=== PATIENT | male | born 1985 | race African-American/Black ===

== ENCOUNTER 2016-06-28 16:47 | Emergency (ER) | payer MEDICARE, MEDICAID ==
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
[2016-06-28 20:25] LABS: APPEARANCE,URINE CLEAR; BILIRUBIN,URINE NEGATIVE (NEGATIVE); GLUCOSE, URINE NEGATIVE (NEGATIVE); KETONES,URINE NEGATIVE (NEGATIVE); LEUKOCYTE ESTERASE,URINE LARGE (NEGATIVE); NITRITE,URINE POSITIVE (NEGATIVE); PROTEIN,URINE NEGATIVE (NEGATIVE); URINE SPECIFIC GRAVITY 1.005
[2016-06-28] MEDS ORDERED: CEPHALEXIN 500 MG CAPSULE PO ONE (21:23)
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
[2016-06-28] MEDS ORDERED: HYDROCODONE/ACETAMINOPHEN 5-325 MG TABLET PO ONE (21:57)
[2016-06-28 22:06] VITALS: BP 114/64
== END 2016-06-28 22:06 | disposition home or self-care (01) ==
LOC: ER 16:47
DX: N39.0 Urinary tract infection, site not specified (principal); R31.9 Hematuria, unspecified; Z46.6 Encounter for fitting and adjustment of urinary device; Z88.2 Allergy status to sulfonamides
CPT/HCPCS: 99283; 87086; 87088; 81001; 87186; A9270 ×2

== ENCOUNTER 2016-07-20 18:01 | Emergency (ER) | payer MEDICARE, MEDICAID ==
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
[2016-07-20] MEDS ORDERED: IPRATROPIUM/ALBUTEROL 0.5-2.5 MG/3 ML AMPUL NEB ONE (19:36)
[2016-07-20] MEDS ORDERED: PREDNISONE 20 MG TABLET PO ONE (19:36)
[2016-07-20] MEDS ORDERED: NORMAL SALINE 1000 ML 1,000 ML IV ONE ×2 (20:45→21:58)
[2016-07-20] MEDS ORDERED: ONDANSETRON HCL INJ/PF 4 MG/2 ML SDV IV ONE (20:48)
[2016-07-20] MEDS ORDERED: PIPERACILLIN/TAZOBACTAM 3.375 GM VIAL IV ONE (20:53)
[2016-07-20] MEDS ORDERED: LIDOCAINE 2% URO-JET 5 ML KIT MM ONE (20:54)
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
[2016-07-20 21:37] LABS: APPEARANCE,URINE CLEAR; BILIRUBIN,URINE NEGATIVE (NEGATIVE); GLUCOSE, URINE NEGATIVE (NEGATIVE); KETONES,URINE TRACE mg/dL (NEGATIVE); LEUKOCYTE ESTERASE,URINE SMALL (NEGATIVE); NITRITE,URINE NEGATIVE (NEGATIVE); PROTEIN,URINE 30 mg/dL (NEGATIVE); URINE SPECIFIC GRAVITY 1.014
--- NOTE | 2016-07-20 21:51 | EKG REPORT ---
SEVERITY:- NORMAL ECG - SINUS RHYTHM : Confirmed by: Nyla Ramirez MD 20-Jul-2016 21:50:53
[2016-07-21 00:28] LABS: ABSOLUTE LYMPHOCYTES (AUTO) 1.7 10^3/uL (0.5-4.7); ABSOLUTE MONOCYTES (AUTO) 1.1 10^3/uL (0.1-1.4); ABSOLUTE NEUT (AUTO) 7.4 10^3/uL (1.7-8.2); BASOPHILS % (AUTO) 0.5 % (0-2); EOSINOPHILS % (AUTO) 0.4 % (0-6); HEMATOCRIT 44.1 % (37.9-51.0); HEMOGLOBIN 14.5 g/dL (13.5-17.0); HGB HCT DIFFERENCE -0.6; LYMPHOCYTES % (AUTO) 16.3 % (13-45); MEAN CORPUSCULAR HEMOGLOBIN 29.4 pg (27.0-33.4); MEAN CORPUSCULAR HGB CONC 32.9 g/dL (32.0-36.0); MEAN CORPUSCULAR VOLUME 89 fl (80-97); RED BLOOD COUNT 4.94 10^6/uL (4.35-5.55); RED CELL DISTRIBUTION WIDTH 14.3 % (11.5-14.0); SEGMENTED NEUTROPHILS % (AUTO) 71.8 % (42-78); WHITE BLOOD COUNT 10.3 10^3/uL (4.0-10.5)
[2016-07-21] MEDS ORDERED: PIPERACILLIN/TAZOBACTAM 3.375 GM VIAL IV ONE (00:28)
[2016-07-21 00:33] LABS: PROTHROMBIN TIME 13.3 SEC (11.4-15.4)
[2016-07-21 00:52] LABS: ALANINE AMINOTRANSFERASE 30 U/L (21-72); ALBUMIN 4.6 g/dL (3.5-5.0); ALKALINE PHOSPHATASE 72 U/L (38-126); ANION GAP 15 (5-19); ASPARTATE AMINO TRANSFERASE 43 U/L (17-59); BILIRUBIN,DIRECT 0.4 mg/dL (0.0-0.4); BILIRUBIN,TOTAL 0.8 mg/dL (0.2-1.3); BLOOD UREA NITROGEN 13 mg/dL (7-20); CALCIUM 9.8 mg/dL (8.4-10.2); CARBON DIOXIDE 30 mmol/L (22-30); CHLORIDE 102 mmol/L (98-107); CREATININE RESULT 0.65 mg/dL (0.52-1.25); GLUCOSE 101 mg/dL (75-110); SODIUM 146.9 mmol/L (137-145); TOTAL PROTEIN 8.1 g/dL (6.3-8.2)
[2016-07-21] MEDS ORDERED: CEPHALEXIN 500 MG CAPSULE PO ONE (01:45)
[2016-07-21 02:06] VITALS: BP 118/71
== END 2016-07-21 02:06 | disposition home or self-care (01) ==
LOC: ER 18:01
DX: R30.0 Dysuria (principal); R82.90 Unspecified abnormal findings in urine; R11.2 Nausea with vomiting, unspecified; R50.9 Fever, unspecified; R10.2 Pelvic and perineal pain; R09.02 Hypoxemia; R06.2 Wheezing; E78.00 Pure hypercholesterolemia, unspecified; Z88.2 Allergy status to sulfonamides; Z86.718 Personal history of other venous thrombosis and embolism; Z99.3 Dependence on wheelchair
CPT/HCPCS: 93005; 99284; 51701; 96365; 36415; 87040; 87086; 82962; 85025; 85610; 87077; 87088; 80053; 81001; 87186; 83605; 71010; 93010; A9270; J7030; J2543

== ENCOUNTER 2017-04-25 10:26 | Emergency (ER) | payer MEDICARE, MEDICAID ==
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
[2017-04-25] MEDS ORDERED: NITROFURANTOIN MONOHYD/M-CRYST 100 MG CAPSULE PO ONE (12:19)
[2017-04-25] MEDS ORDERED: DIPHENHYDRAMINE HCL 50 MG CAPSULE PO ONE (12:23)
[2017-04-25 12:53] VITALS: BP 109/46
== END 2017-04-25 12:53 | disposition home or self-care (01) ==
LOC: ER 10:26
DX: T36.8X5A Adverse effect of other systemic antibiotics, initial encounter (principal); R21 Rash and other nonspecific skin eruption; F17.200 Nicotine dependence, unspecified, uncomplicated
CPT/HCPCS: 99283; A9270 ×2; J8499

== ENCOUNTER 2017-07-26 13:28 | Emergency (ER) | payer MEDICARE, MEDICAID ==
[2017-07-26] MEDS ORDERED: KETOROLAC TROMETHAMINE 60 MG/2 ML SDV IM ONE (14:33)
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
[2017-07-26] MEDS ORDERED: BACLOFEN 20 MG TABLET PO ONE (15:15)
[2017-07-26 15:39] LABS: APPEARANCE,URINE SLIGHTLY-CLOUDY; BILIRUBIN,URINE NEGATIVE (NEGATIVE); COLOR,URINE YELLOW; GLUCOSE, URINE NEGATIVE (NEGATIVE); KETONES,URINE NEGATIVE (NEGATIVE); LEUKOCYTE ESTERASE,URINE LARGE (NEGATIVE); NITRITE,URINE POSITIVE (NEGATIVE); PROTEIN,URINE NEGATIVE (NEGATIVE); URINE SPECIFIC GRAVITY 1.008
[2017-07-26 16:03] VITALS: BP 105/74
== END 2017-07-26 16:03 | disposition home or self-care (01) ==
LOC: ER 13:28
DX: N30.00 Acute cystitis without hematuria (principal); E78.00 Pure hypercholesterolemia, unspecified; F17.210 Nicotine dependence, cigarettes, uncomplicated; Z86.718 Personal history of other venous thrombosis and embolism; Z88.2 Allergy status to sulfonamides
CPT/HCPCS: 99284; 96372; 87086; 87088; 81001; 87186; J1885; A9270; J3490

== ENCOUNTER 2017-12-24 12:04 | Emergency (ER) | payer MEDICARE, MEDICAID ==
[2017-12-24] MEDS ORDERED: RINGERS SOLUTION,LACTATED 1,000 ML IV ONE (12:22)
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
[2017-12-24] MEDS ORDERED: NORMAL SALINE 1000 ML 1,000 ML IV ONE ×2 (12:44→13:13)
[2017-12-24 13:08] LABS: APPEARANCE,URINE CLOUDY; BILIRUBIN,URINE NEGATIVE (NEGATIVE); COLOR,URINE AMBER; GLUCOSE, URINE NEGATIVE (NEGATIVE); KETONES,URINE NEGATIVE (NEGATIVE); LEUKOCYTE ESTERASE,URINE LARGE (NEGATIVE); NITRITE,URINE POSITIVE (NEGATIVE); PROTEIN,URINE 100 mg/dL (NEGATIVE); TRIPLE PHOSPHATE CRYSTAL,URINE MODERATE /HPF; URINE SPECIFIC GRAVITY 1.019
--- NOTE | 2017-12-24 13:11 | RADIOLOGY REPORT (SQ) ---
EXAM DESCRIPTION: CT LTD RENAL STONE PROTOCOL ON COMPLETED DATE/TIME: 12/24/2017 12:51 pm REASON FOR STUDY: r flank pain COMPARISON: CT pelvis examination dated 03/23/2016 TECHNIQUE: CT scan of the abdomen and pelvis performed without intravenous or oral contrast. Images reviewed with lung, soft tissue, and bone windows. Reconstructed coronal and sagittal MPR images revi ewed. All images stored on PACS. All CT scanners at this facility use dose modulation, iterative reconstruction, and/or weight based d osing when appropriate to reduce radiation dose to as low as reasonably achievable (ALARA). [facility]: Dose Right [facility]: CareDose [facility]: Dose Right [facility]: Teradose 4D [facility]: [employer] RADIATION DOSE: Total exam DLP: 614.94 mGy-cm. LIMITATIONS: None. FINDINGS: LOWER CHEST: No significant findings. No nodules or infiltrates. NON-CONTRASTED LIVER, SPLEEN, ADRENALS: Evaluation limited by lack of IV contrast. No identified sign ificant masses. PANCREAS: No masses. No peripancreatic inflammatory changes. GALLBLADDER: No identified stones by CT criteria. No inflammatory changes to suggest cholecystitis. RIGHT KIDNEY AND URETER: No suspicious masses. Assessment limited by lack of IV contrast. No signif icant calcifications. No hydronephrosis or hydroureter. LEFT KIDNEY AND URETER: No suspicious masses. Assessment limited by lack of IV contrast. No signifi cant calcifications. No hydronephrosis or hydroureter. AORTA AND RETROPERITONEUM: No aneurysm. No retroperitoneal masses or adenopathy. BOWEL AND PERITONEAL CAVITY: Constipation. No obvious masses or inflammatory changes. No free fluid . APPENDIX: Normal. PELVIS, BLADDER, AND ABDOMINAL WALL: The prostate gland is stable in appearance. Mild diffuse thick ening of the urinary bladder wall, stable finding. No abnormal masses. No free fluid. BONES: Dextroconvex scoliosis of the lumbar spine. The osseous structures of the pelvis/hips are s table in appearance since examination dated 03/23/2016. OTHER: IVC filter. Hardware posterior surgical fusion visualized lower thoracic spine. IMPRESSION: 1. NO SIGNIFICANT OR ACUTE PROCESS IN THE ABDOMEN OR PELVIS. 2. IVC filter. 3. Additional stable findings of the pelvis. COMMENT: Quality ID # [id number]: Final reports with documentation of one or more dose reduction techniques (e.g., Automated exposure control, adjustment of the mA and/or kV according to patient size, use of iterative reconstruction technique) TECHNICAL DOCUMENTATION: JOB ID: [id number] [employer]- All Rights Reserved Reading location - IP/workstation name: [email or web address]
[2017-12-24] MEDS ORDERED: CEFTRIAXONE INJ 1000 MG VIAL IV ONE (13:13)
[2017-12-24 14:35] LABS: ALANINE AMINOTRANSFERASE 13 U/L (21-72); ALBUMIN 4.3 g/dL (3.5-5.0); ALKALINE PHOSPHATASE 62 U/L (38-126); ANION GAP 6 (5-19); ASPARTATE AMINO TRANSFERASE 26 U/L (17-59); BILIRUBIN,DIRECT 0.5 mg/dL (0.0-0.4); BILIRUBIN,TOTAL 0.8 mg/dL (0.2-1.3); BLOOD UREA NITROGEN 12 mg/dL (7-20); CALCIUM 9.5 mg/dL (8.4-10.2); CARBON DIOXIDE 29 mmol/L (22-30); CHLORIDE 105 mmol/L (98-107); GLUCOSE 83 mg/dL (75-110); POTASSIUM 4.3 mmol/L (3.6-5.0); SODIUM 139.9 mmol/L (137-145)
[2017-12-24 15:32] VITALS: BP 128/79
== END 2017-12-24 15:45 | disposition home or self-care (01) ==
LOC: ER 12:04
DX: N39.0 Urinary tract infection, site not specified (principal); R31.9 Hematuria, unspecified; M62.838 Other muscle spasm; R53.83 Other fatigue; R53.81 Other malaise; G82.20 Paraplegia, unspecified; S22.059S Unspecified fracture of T5-T6 vertebra, sequela; S22.069S Unspecified fracture of T7-T8 vertebra, sequela; V49.9XXS Car occupant (driver) (passenger) injured in unspecified traffic accident, sequela; F17.200 Nicotine dependence, unspecified, uncomplicated; Z88.2 Allergy status to sulfonamides
CPT/HCPCS: 99284; 36415; 87086; 87088; 80053; 81001; 87186; 76380; J0696; 96360

== ENCOUNTER 2018-05-06 13:55 | Emergency (ER) | payer MEDICARE, MEDICAID ==
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
[2018-05-06] MEDS ORDERED: BACITRACIN ZINC OINTMENT 15 GM TP ONE (15:57)
[2018-05-06 16:17] LABS: AMORPHOUS SEDIMENT,URINE TRACE /HPF; APPEARANCE,URINE TURBID; BILIRUBIN,URINE NEGATIVE (NEGATIVE); CALCIUM OXALATE CRYSTALS,URINE FEW /HPF; COLOR,URINE AMBER; GLUCOSE, URINE NEGATIVE (NEGATIVE); KETONES,URINE NEGATIVE (NEGATIVE); LEUKOCYTE ESTERASE,URINE MODERATE (NEGATIVE); NITRITE,URINE NEGATIVE (NEGATIVE); PROTEIN,URINE >=500 mg/dL (NEGATIVE); TRIPLE PHOSPHATE CRYSTAL,URINE MODERATE /HPF
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
[2018-05-06 17:03] VITALS: BP 108/65
== END 2018-05-06 16:56 | disposition home or self-care (01) ==
LOC: ER 13:55
DX: T24.212A Burn of second degree of left thigh, initial encounter (principal); X19.XXXA Contact with other heat and hot substances, initial encounter; T83.511A Infection and inflammatory reaction due to indwelling urethral catheter, initial encounter; N39.0 Urinary tract infection, site not specified; Y84.6 Urinary catheterization as the cause of abnormal reaction of the patient, or of later complication, without mention of misadventure at the time of the procedure; G82.20 Paraplegia, unspecified; S22.059S Unspecified fracture of T5-T6 vertebra, sequela; S22.069S Unspecified fracture of T7-T8 vertebra, sequela; X58.XXXS Exposure to other specified factors, sequela; Z88.2 Allergy status to sulfonamides; F12.10 Cannabis abuse, uncomplicated
CPT/HCPCS: 99283; 87086; 87088; 81001; 87186; J3490